=== PATIENT | male | born 1940 | race Caucasian/White ===

== ENCOUNTER 2017-03-26 04:22 | Inpatient (IN) ==
[2017-03-20 10:17] LABS: MANUAL DIFF NEEDED? NO; URINE MICRO REVIEW NEEDED? NO; URINE SOURCE CLEAN CATCH
--- NOTE | 2017-03-20 10:19 | EKG Report ---
Test Performed on : 03/20/2017 10:00:50 AM Test Reason : PAT Blood Pressure : / mmHG Vent. Rate : 045 BPM Atrial Rate : 045 BPM P-R Int : 112 ms QRS Dur : 094 ms QT Int : 484 ms P-R-T Axes : 033 063 060 degrees QTc Int : 418 ms Sinus bradycardia. Otherwise normal ECG When compared with ECG of 25-OCT-2011 10:35, No significant change was found Confirmed by Luiz Renteria DO ([id number]) on 03/24/2017 12:19:47 PM
[2017-03-20 10:28] LABS: BASO% 0.6 % (0.0-0.8); EOS# 0.08 X1000 (0.0-0.7); EOS% 1.6 % (0.0-10.0); HEMATOCRIT 44.5 % (42.0-52.0); HEMOGLOBIN 15.7 g/dL (14.0-18.0); LYMPH# 1.33 X1000 (1.2-3.4); LYMPH% 26.2 % (20.5-51.1); MCH 34.7 PG (27-31); MCHC 35.3 g/dL (33-37); MCV 98.5 FL (81-99); MONO# 0.67 X1000 (0.11-0.59); MONO% 13.2 % (1.7-9.3); MPV 9.6 FL (7.4-10.4); NEUT% 58.4 % (42.2-75.2); PLT 159 X1000 (130-400); PROTIME 10.5 Seconds (9.2-11.7); PTT 28.8 Seconds (22.0-36.0); RBC 4.52 XMIL (4.7-6.1)
[2017-03-20 10:29] LABS: BILIRUBIN URINE NEGATIVE (NEGATIVE); BLOOD URINE NEGATIVE (NEGATIVE); COLOR YELLOW; GLUCOSE URINE NEGATIVE (NEGATIVE); LEUKOCYTES URINE NEGATIVE (NEGATIVE); NITRITE URINE NEGATIVE (NEGATIVE); PH URINE 5.5; PROTEIN URINE TRACE mg/dL (NEGATIVE); SP GRAVITY URINE 1.021; TURBIDITY URINE CLEAR (CLEAR); UROBILINOGEN URINE NORMAL (NORMAL)
[2017-03-20 10:31] LABS: UR EPITHELIAL CELLS <10 /HPF (<10); URINE BACTERIA NEGATIVE /HPF; URINE RBC <10 /HPF (<10); URINE WBC <10 /HPF (<10)
[2017-03-20 10:51] LABS: AGAP 11; BUN 13 mg/dL (8-22); CALCIUM 8.9 mg/dL (8.8-10.2); CHLORIDE 108 mmol/L (98-107); COSMO 288; POTASSIUM 4.8 mmol/L (3.5-5.1); SODIUM 145 mmol/L (136-145); TCO2 26 mmol/L (25-35)
[2017-03-26] MEDS ORDERED: REGLAN ONE (06:06)
[2017-03-26] MEDS ORDERED: LYRICA ONE (06:06)
[2017-03-26] MEDS ORDERED: COLACE ONE (06:06)
[2017-03-26] MEDS ORDERED: PEPCID ONE (06:06)
[2017-03-26] MEDS ORDERED: CELEBREX ONE (06:06)
[2017-03-26] MEDS ORDERED: LR 1,000 ML ONE (06:07)
[2017-03-26] MEDS ORDERED: KEFZOL 2 GM/D5W 2 GM/50 ML IVPB ONE (06:07)
[2017-03-26] MEDS ORDERED: XYLOCAINE-MPF 2% ONE (06:36)
[2017-03-26] MEDS ORDERED: FENTANYL ONE (06:36)
[2017-03-26] MEDS ORDERED: DIPRIVAN 1% ONE (06:36)
[2017-03-26] MEDS ORDERED: ROBINUL ONE ×2 (06:36→07:31)
[2017-03-26] MEDS ORDERED: CYKLOKAPRON 1,000 MG/NS 1,000 MG/100 ML IVPB ONE (06:56)
[2017-03-26] MEDS ORDERED: MARCAINE 0.25% PF ONE (06:56)
[2017-03-26] MEDS ORDERED: TORADOL ONE (06:56)
[2017-03-26] MEDS ORDERED: SODIUM CHLORIDE 0.9% ONE (06:56)
[2017-03-26] MEDS ORDERED: DURAMORPH ONE (06:56)
[2017-03-26] MEDS ORDERED: NEOSPORIN G.U. IRRIGANT ONE (06:56)
[2017-03-26] MEDS ORDERED: EXPAREL 1.3% ONE (06:56)
[2017-03-26] MEDS ORDERED: KETAMINE ONE (07:27)
[2017-03-26] MEDS ORDERED: OFIRMEV 1000 MG/ISOTONIC SOLN 1,000 MG/100 ML BOTTLE ONE (07:28)
[2017-03-26] MEDS ORDERED: DECADRON ONE (07:28)
[2017-03-26] MEDS ORDERED: EPHEDRINE ONE (07:30)
[2017-03-26 08:59] LABS: URINE MICRO REVIEW NEEDED? NO; URINE SOURCE CATH
[2017-03-26 09:09] LABS: BILIRUBIN URINE NEGATIVE (NEGATIVE); BLOOD URINE NEGATIVE (NEGATIVE); COLOR YELLOW; GLUCOSE URINE NEGATIVE (NEGATIVE); LEUKOCYTES URINE NEGATIVE (NEGATIVE); NITRITE URINE NEGATIVE (NEGATIVE); PH URINE 5.5; PROTEIN URINE TRACE mg/dL (NEGATIVE); SP GRAVITY URINE 1.021; TURBIDITY URINE CLEAR (CLEAR); UR EPITHELIAL CELLS <10 /HPF (<10); URINE BACTERIA NEGATIVE /HPF; URINE RBC <10 /HPF (<10); URINE WBC <10 /HPF (<10); UROBILINOGEN URINE NORMAL (NORMAL)
[2017-03-26] MEDS ORDERED: NS 1,000 ML ONE (09:59)
[2017-03-26] MEDS: MORPHINE ONE ×2 (10:35→10:43)
[2017-03-26] MEDS ORDERED: MILK OF MAGNESIA PO PRN (11:15)
[2017-03-26] MEDS ORDERED: AMBIEN PO PRN (11:15)
[2017-03-26] MEDS ORDERED: MORPHINE IV PRN (11:15)
[2017-03-26] MEDS ORDERED: OXY IR PO PRN (11:15)
[2017-03-26] MEDS ORDERED: ZOFRAN IV PRN (11:15)
--- NOTE | 2017-03-26 13:38 | OPERATIVE NOTE ---
PROCEDURE DATE: 03/26/2017 PREOPERATIVE DIAGNOSIS: Right hip degenerative joint disease. POSTOPERATIVE DIAGNOSIS: Right hip degenerative joint disease. PROCEDURE PERFORMED: Right total hip arthroplasty using a [facility] size 17 femoral, standard offset, stem with a +4, 36 mm head, a 56 mm hemispherical shell with two 6.5 cancellous screws of 35 and 30 mm, and a 36 mm inside diameter liner. SURGEON: Zachery Booth MD 1ST ENVIRONMENTAL SERVICES WORKER: YU Roman, who was present throughout the case and was critical for exposure, placement of the implants, and wound closure. 2ND ENVIRONMENTAL SERVICES WORKER: Mike Sorenson RN ANESTHESIA: General. COMPLICATIONS: None. BLOOD LOSS: Minimal. DRAIN: Hemovac x1. DESCRIPTION OF PROCEDURE: The patient was brought to the operative suite and placed in supine position. After successful administration of general anesthesia, the patient was placed on the OSI table in the usual position for the right hip. The right hip was then prepped and draped in the usual sterile fashion. A longitudinal incision was made beginning 2 cm distal and 2 cm lateral to the anterior superior iliac spine and extended distally and slightly laterally 8 cm. We dissected sharply through the skin and then sharply down to the tensor fascia. The tensor fascia was incised and dissected bluntly down to the deep tensor fascia. The deep tensor fascia was incised and the circumflex vessels were electrocauterized. Hemostasis was obtained with electrocautery. A T-capsulotomy was performed, exposing the anterior capsule. A femoral neck cut was made with an oscillating saw. The femoral head was removed with a power corkscrew. The labrum was resected. The acetabulum was serially reamed to 56 to accept a 56 cup. The 56 cup was driven into place in a proper amount of inclination and anteversion. Two 6.5 cancellous screws were placed superiorly and superior posteriorly of 35 and 30 mm each. A 36 mm liner was then locked onto the shell. Attention was then directed to the femur. It was externally rotated, extended, adducted, and elevated out of the wound with the hook on the OSI bed. The lateral neck was rongeured. The canal was serially broached to a size 17. A size 17 high offset +4 trial was found to be excellent leg length, offset, and the hip was stable to exam. The trial was removed. The definitive stem was seated on the femur. The ceramic head was seated on the Hoyt taper of the stem and then the hip was reduced. It was again found to be in excellent position. The wound was copiously irrigated. The anterior capsule was repaired with #2 FiberWire and 0 V-Loc suture. The hip was copiously infiltrated with Exparel, including the posterior capsule, anterior capsule, anterior musculature, and subcutaneous tissue. A drain was placed deep to the tensor fascia and buried around the stem neck and then the tensor fascia was closed with running 0 V-Loc sutures. The skin edge was approximated with 2-0 Vicryl. The skin was closed with Monocryl and Prineo. A sterile dressing was applied. The patient tolerated the procedure well without complication. At the end of the procedure, all counts were correct. The patient was transferred to the recovery room in stable condition. cc: Zachery Booth MD
[2017-03-26] MEDS ORDERED: CYKLOKAPRON 1,000 MG in NS 100 ML IV ONE (13:40)
[2017-03-26] MEDS: KEFZOL 1 GM/D5W 1 GM/50 ML IVPB IV SCH ×2 (14:56→23:12)
[2017-03-26] MEDS: COLACE PO SCH ×2 (14:57→21:35)
[2017-03-26] MEDS: ULTRAM PO SCH ×2 (14:57→18:38)
[2017-03-26] MEDS: TYLENOL PO SCH ×2 (14:57→21:36)
[2017-03-26] MEDS: PERIDEX MT SCH ×2 (14:58→21:35)
[2017-03-26] MEDS: NS 1,000 ML IV SCH ×2 (21:35→23:26)
[2017-03-26] MEDS: LYRICA PO SCH (21:35)
[2017-03-26] MEDS: CELEBREX PO SCH (21:36)
[2017-03-27] MEDS: TYLENOL PO SCH ×2 (02:03→08:51)
[2017-03-27 05:42] LABS: HEMATOCRIT 33.5 % (42.0-52.0); HEMOGLOBIN 11.3 g/dL (14.0-18.0)
[2017-03-27] MEDS ORDERED: XARELTO PO SCH (06:00)
[2017-03-27 06:25] LABS: AGAP 9; BUN 13 mg/dL (8-22); CALCIUM 7.7 mg/dL (8.8-10.2); CHLORIDE 104 mmol/L (98-107); COSMO 275; POTASSIUM 3.9 mmol/L (3.5-5.1); SODIUM 138 mmol/L (136-145); TCO2 25 mmol/L (25-35)
[2017-03-27] MEDS: ULTRAM PO SCH ×3 (06:30→11:33)
[2017-03-27] MEDS: NS 1,000 ML IV SCH (06:30)
[2017-03-27] MEDS ORDERED: DECADRON PO ONE (08:09)
[2017-03-27] MEDS: COLACE PO SCH (08:52)
[2017-03-27] MEDS: PERIDEX MT SCH (08:52)
[2017-03-27] MEDS: CELEBREX PO SCH (08:52)
[2017-03-27] MEDS: LYRICA PO SCH (08:53)
[2017-03-27] MEDS ORDERED: APRESOLINE PO SCH (09:00)
[2017-03-27] MEDS ORDERED: SYNTHROID PO SCH (09:00)
[2017-03-27] MEDS ORDERED: PEPCID PO SCH (09:00)
[2017-03-27] MEDS ORDERED: PATIENT'S OWN MED PO SCH (09:00)
[2017-03-27] MEDS ORDERED: TENORMIN PO SCH (09:00)
[2017-03-27] MEDS ORDERED: KLOR-CON PO SCH (09:00)
[2017-03-27] MEDS ORDERED: DECADRON IV ONE (09:00)
[2017-03-27 11:41] VITALS: BP 114/51
--- NOTE | 2017-03-27 19:21 | DISCHARGE SUMMARY ---
ADMISSION DATE: 03/26/2019 DISCHARGE DATE: 03/27/2017 DISCHARGE DIAGNOSIS: Right hip degenerative joint disease, status post right anterior total hip arthroplasty. DISCHARGE MEDICATIONS: See discharge medication list. DISPOSITION: The patient is discharged to rehab. DISCHARGE INSTRUCTIONS: Instructions for total hip arthroplasty protocol, and instructed to return to see Dr. Booth next . HOSPITAL COURSE: On the day of admission, the patient underwent a right anterior total hip arthroplasty. His postoperative course was unremarkable. At discharge, he is afebrile, tolerating regular diet, and ambulating well with physical therapy. Yesterday, he walked 175 feet. He had 10 mL of drainage from his Hemovac. His hemoglobin is 10.3 and hematocrit 33.5 on discharge. His wound is clean, dry and intact, without sign of infection. His calf is soft. He is discharged to rehab in stable condition with instructions to follow up, as described above. Dictated by YU Roman for Zachery Booth MD cc: YU Roman MD
== END 2017-03-27 12:37 | disposition home health service (06) ==
LOC: SURHOLD 04:22 → 4N 07:20
PROVIDERS: ADMIT Orthopaedic Surgery; ATTEND Orthopaedic Surgery

== ENCOUNTER 2019-08-12 04:32 | Inpatient (IN) ==
[2019-08-12] MEDS ORDERED: NS 1,000 ML IV ONE ×2 (04:45)
[2019-08-12] MEDS ORDERED: ZOFRAN IV ONE (04:45)
[2019-08-12] MEDS ORDERED: PROTONIX 80 MG in NS 80 ML IV ONE (04:45)
[2019-08-12] MEDS ORDERED: MORPHINE IV ONE (04:45)
[2019-08-12 05:34] LABS: BASO# 0.01 X1000 (0.0-0.2); BASO% 0.1 % (0.0-0.8); EOS# 0.03 X1000 (0.0-0.7); EOS% 0.4 % (0.0-10.0); HEMOGLOBIN 8.7 g/dL (14.0-18.0); IMM GRAN# 0.02 X1000 (0.0-0.04); IMM GRAN% 0.3 % (0.0-0.5); LYMPH# 0.78 X1000 (1.2-3.4); LYMPH% 10.5 % (20.5-51.1); MCH 28.1 PG (27-31); MCV 93.5 FL (81-99); MONO# 0.61 X1000 (0.11-0.59); MONO% 8.2 % (1.7-9.3); MPV 8.9 FL (7.4-10.4); NEUT# 5.95 X1000 (1.4-6.5); NEUT% 80.5 % (42.2-75.2); PLT 331 X1000 (130-400); RDW 14.9 % (11.5-14.5)
--- NOTE | 2019-08-12 05:36 | PROVIDER DOCUMENTATION ---
HPI-Abdominal Pain/GI Problem - General Chief Complaint: GI Bleed Stated Complaint: ABD PAIN Time Seen by Provider: 08/12/19 04:38 Source: patient, EMS, [place] [facility] records, old records Allergies/Adverse Reactions: Patient Allergies Allergy/AdvReac Type Severity Reaction Status Date / Time bupropion [From Wellbutrin] AdvReac Severe Unknown Verified 07/29/19 21:03 Psdnrtd-Suq-Txi Reductase AdvReac Unknown Verified 08/12/19 06:05 Inhibitor tramadol AdvReac Unknown Verified 08/12/19 06:05 Home Medications: Home Medication List Medication Instructions Recorded Confirmed Last Taken Type Atenolol 100 mg PO DAILY 03/20/17 08/12/19 07/29/19 05:30 History Hydralazine [Apresoline] 50 mg PO DAILY 03/20/17 08/12/19 07/29/19 05:30 History Levothyroxine [Synthroid] 125 mcg PO DAILY 03/20/17 08/12/19 07/29/19 05:30 History Memantine HCl/Donepezil HCl 1 each PO DAILY 03/20/17 08/12/19 07/29/19 09:00 History [Namzaric 28 mg-10 mg Capsule] Potassium Chloride 20 meq PO DAILY 03/20/17 08/12/19 07/29/19 05:30 History Acetaminophen [Tylenol] 1,000 mg PO QHS 07/29/19 08/12/19 07/28/19 21:00 History Budesonide/Formoterol Fumarate 2 puff INH QAM 07/29/19 08/12/19 07/29/19 05:30 History [Symbicort 160-4.5 Mcg Inhaler] Donepezil [Aricept] 10 mg PO QAM 07/29/19 08/12/19 07/29/19 05:30 History Melatonin/Pyridoxine HCl (B6) 1 mg PO QHS 07/29/19 08/12/19 07/28/19 21:00 History [Melatonin 1 mg Tablet] Meloxicam [Mobic] 7.5 mg PO BID 07/29/19 08/12/19 07/29/19 05:30 History Prevagen 1 ea PO QAM 07/29/19 07/29/19 07/29/19 05:30 History Albuterol Sulfate 1 dose PO DAILY 08/12/19 08/12/19 Unknown History Apixaban [Eliquis] 2.5 mg PO DAILY 08/12/19 08/12/19 Unknown History Azithromycin 250 mg PO DAILY 08/12/19 08/12/19 Unknown History Budesonide/Formoterol Fumarate 1 dose INH BID 08/12/19 08/12/19 Unknown History [Symbicort 160-4.5 Mcg Inhaler] Ferrous Sulfate [Feosol] 325 mg PO DAILY 08/12/19 08/12/19 Unknown History Hydrocodone/Acetaminophen 1 tab PO Q6H PRN 08/12/19 08/12/19 Unknown History [Hydrocodone-Acetamin 5-325 mg] Levofloxacin [Levaquin] 500 mg PO DAILY 08/12/19 08/12/19 Unknown History Magnesium Hydroxide [Milk of 1 dose PO PRN PRN 08/12/19 08/12/19 Unknown History Magnesia] Meloxicam 7.5 mg PO BID PRN 08/12/19 08/12/19 Unknown History Multivit-Minerals/FA/Lycopene 1 cap PO DAILY 08/12/19 08/12/19 Unknown History [Men's Daily Formula Capsule] Nicotine Patch [Nicoderm Patch] 1 patch TOP DAILY 08/12/19 08/12/19 Unknown History - History of Present Illness-ABD Nature of Presenting Problems: 79 yo [place] resident with history of dementia and arthritis and remote EtOH abuse, on Eliquis for CAD/CHF and Meloxicam for arthritis pain, developed some crampy abdominal pain this evening and has had multiple melanotic stools at the [place]. Patient had near syncopal episode and they dialled 911. EMS states BP was 70s systolic, patient was pale and diaphoretic with decreased responsiveness initially, but improved with O2 en route. No prior hx of GI bleed. Hx is limited d/t dementia and no family present. Abdominal Pain Onset Location: reports: generalized abdomen Pain Radiation: reports: no radiation Quality of Pain: reports: dull Severity in ED: reports: moderate Onset/Duration: reports: last night Timing: reports: still present, constant, changing over time Activities at Onset: reports: light activity Exposure to sick contacts?: No Modifying Factors: improves with: lying down. worse with: movement, palpation Associated Symptoms: reports: diaphoresis, diarrhea (melenotic), nausea, syncope , weakness Last BM: this morning Dark Stools Present?: reports: maroon Rectal Pain: reports: none Emesis Description: reports: none Bruising or Bleeding Gums?: No Similar Symptoms Previously?: No Recently seen or treated by another doctor?: No Review of Systems - Adult - REVIEW OF SYSTEMS - ADULT Constitutional: reports: no symptoms reported Eyes: reports: no symptoms reported Ears, Nose, Mouth & Throat: reports: no symptoms reported Cardiovascular: reports: no symptoms reported Respiratory: reports: no symptoms reported Gastrointestinal: reports: no symptoms reported Genitourinary: reports: no symptoms reported Musculoskeletal: reports: no symptoms reported Integumentary: reports: no symptoms reported Neurological: reports: no symptoms reported Psychiatric: reports: no symptoms reported Endocrine: reports: no symptoms reported Hematologic/Lymphatic: reports: no symptoms reported Allergic/Immunologic: reports: no symptoms reported All Other Systems: Reviewed and Negative Past History - Adult - PAST MEDICAL HISTORY-ADULT Review of Records: reports: Old Records Reviewed, Nursing Assessment Review, Medications Reviewed, Social history reviewed & non-contributory. Major Childhood Illnesses: reports: denies history Cardiovascular: reports: CAD, CHF Respiratory: reports: denies history Gastrointestinal: reports: denies history Obstetrical/Gynecological: reports: denies history Genitourinary: reports: denies history Musculoskeletal: reports: denies history Neurological: reports: Alzheimer's Endocrine/Immune: reports: denies history Other Conditions: reports: denies history - PRIOR SURGERIES/PROCEDURES Surgical/Procedure History: reports: reviewed, not pertinent, orthopedic (extremity) - IMMUNIZATION STATUS Childhood Immunizations: UTD Flu Vaccine: NUTD - SOCIAL HISTORY Smoking: non-smoker Substance Use: none presently/history of abuse, alcohol Alcohol Use Frequency: sober (former use) Living Situation: care facility Physical Exam-General - PHYSICAL EXAM-ADULT Initial Vital Signs Reviewed: Yes (VSSAF) - CONSTITUTIONAL General Appearance: appears well, alert, no apparent distress - EYES Eyes: PERRL/EOMI, pale conjunctivae - HEAD, EARS, NOSE, MOUTH & THROAT HENMT: normocephalic/atraumatic. negative: moist mucous membranes (dry, pale mucosa) - NECK Neck: non-tender, full range of motion, supple - RESPIRATORY Respiratory: chest non-tender, lungs clear, normal breath sounds, no pleuratic chest pain, no respiratory distress, no accessory muscle use - CARDIOVASCULAR Cardiovascular: normal peripheral pulses, regular rate, rhythm, no edema, no gallop, no JVD, systolic murmur - GASTROINTESTINAL (ABDOMEN) Abdominal Exam: soft, abnormal bowel sounds (hyperactive), tenderness (moderate diffuse without rebound or guarding) - GENITOURINARY Rectal Exam: other (melena) Hemoccult Exam: heme positive stool - MUSCULOSKELETAL Back Exam: normal inspection, no CVA tenderness, no vertebral tenderness Extremity: normal range of motion, non-tender, normal inspection, no pedal edema , no calf tenderness, normal capillary refill Peripheral Pulses: radial (L): 2+, dorsalis-pedis (R): 2+, dorsalis-pedis (L): 2+ - SKIN Integumentary: normal turgor, warm/dry, pallor - NEUROLOGIC Neurologic: licensed mortgage loan officer II-XII nml as tested, grossly normal, no motor/sensory deficits - PSYCHIATRIC Psych/Mental Status: normal mood/affect, normal thought content, disoriented x 3 Progress - PLAN OF CARE/RESULTS Progress/Plan/Lab Results: Vital Signs - 8 hr 08/12/19 04:40 Temperature 98.2 F Pulse Rate 67 Respiratory Rate 20 Blood Pressure 104/56 O2 Sat by Pulse Oximetry 100 Orders Category Date Time Status Aguirre Cath Insertion ORDERED Care 08/12/19 04:45 Active Nursing- Obtain EKG once Care 08/12/19 04:45 Active CHEST-PORTABLE [RAD] Stat Exams 08/12/19 04:[address] ABD/PELVIS W/IV CONT ONLY [CT] Stat Exams 08/12/19 04:46 Ordered KUB ABDOMEN [RAD] Stat Exams 08/12/19 04:44 Ordered BLOOD CULTURE [BLDCUL] Stat Lab 08/12/19 05:00 Ordered CBC WITH ELECTRONIC DIFF [HEME] Stat Lab 08/12/19 05:00 Results COMPREHENSIVE METABOLIC PANEL [CHEM] Stat Lab 08/12/19 05:00 Received LACTATE, PLASMA [CHEM] Stat Lab 08/12/19 05:00 Received PRO B-NATRIURETIC PEPTIDE Stat Lab 08/12/19 05:00 Received PROTIME WITH INR [COAG] Stat Lab 08/12/19 05:00 Received PTT [COAG] Stat Lab 08/12/19 05:00 Received TROPONIN T HIGH SENSITIVITY Stat Lab 08/12/19 05:00 Received TYPE & SCREEN [BBK] Stat Lab 08/12/19 05:00 Received URINALYSIS W/POSS RFLX CULT [URINALYSIS] Stat Lab 08/12/19 04:45 Uncollected 0.9% Sodium Chloride Inj [Ns] 1,000 ml Med 08/12/19 04:45 Active IV 999 mls/hr 0.9% Sodium Chloride Inj [Ns] 1,000 ml Med 08/12/19 04:45 Active IV 999 mls/hr Morphine Med 08/12/19 04:45 Discontinued 2 mg IV NOW ONE Ondansetron [Zofran] Med 08/12/19 04:45 Discontinued 4 mg IV NOW ONE Pantoprazole [Protonix] 80 mg Med 08/12/19 04:45 Discontinued 0.9% Sodium Chloride Inj [Ns] 80 ml IV NOW GI Bleed (possible) Stat Oth 08/12/19 04:43 Ordered EKG [EKG] Stat Ther 08/12/19 04:45 Ordered Result Diagrams: 08/12/19 05:00 08/12/19 05:00 - REASSESSMENT Reassessment #1 Time Reassessed: 06:03 Status: improving (Given 2L of IVF bolus, IV morphine/zofran and protonix. We do not stock the reversal agent for Eliquis at this facility.) - EKG 1 Time of EKG reading by physician:: 06:16 EKG Read and Signed by:: Carl Hoover EKG Interpretation (*Must complete 3 of following elements*): Abnormal Rate: 66 Rhythm: NSR [place]: normal QRS: other (low voltage) - CONSULTS/PCP/HOSPITALIST Notification #1 *Consult/PCP/Hospitalist*: Zuri paged at [phone], [id number] Time Discussed: 06:17 Consult Disposition: Admit Departure - Departure Date of Disposition Decision: 08/12/19 Time of Disposition Decision: 06:17 DIAGNOSIS: GI bleed due to NSAIDs, Nontraumatic hemorrhagic shock Anticoagulant adverse reaction Qualifiers: Encounter type: initial encounter Qualified Code(s): T45.515A - Adverse effect of anticoagulants, initial encounter Disposition: ADMITTED INPATIENT 09 Certified Medical Emergency: Emergent Condition: Fair - Critical Care Note This patient required my direct & personal management of CC.: Yes Total Time (mins): 35 Critical Care Statement: This patient required my direct personal management to treat or rule out processes, the absence of which, could potentiallly result in sudden, clinically significant life or limb threatening deterioration. Attestation - Physician/ ASHLEY Attestation Patient care was provided by Advanced Practice Provider:: No The physician spent face to face time with patient:: Yes Advanced Practice Provider documentation review:: Supervising physician onsite and consulted in the evaluation and care of this patient. The physician did have a face to face encounter with the patient.
[2019-08-12 05:40] LABS: INR 1.24; PROTIME 15.8 Seconds (11.0-16.0)
[2019-08-12 05:41] LABS: PTT 31.8 Seconds (22.3-41.8)
[2019-08-12 05:53] LABS: URINE SOURCE CLEAN CATCH
[2019-08-12 06:03] LABS: BILIRUBIN URINE NEGATIVE (NEGATIVE); BLOOD URINE NEGATIVE (NEGATIVE); COLOR YELLOW; GLUCOSE URINE NEGATIVE (NEGATIVE); KETONE URINE NEGATIVE (NEGATIVE); LEUKOCYTES URINE NEGATIVE (NEGATIVE); NITRITE URINE NEGATIVE (NEGATIVE); PROTEIN URINE TRACE mg/dL (NEGATIVE); SP GRAVITY URINE 1.024; TURBIDITY URINE CLEAR (CLEAR); UROBILINOGEN URINE 3 mg/dL (NORMAL)
[2019-08-12 06:04] LABS: UR EPITHELIAL CELLS <10 /HPF (<10); URINE BACTERIA NEGATIVE /HPF; URINE RBC <10 /HPF (<10); URINE WBC <10 /HPF (<10)
[2019-08-12 06:07] LABS: ALB/GLOB RATIO 1.2; CALCIUM 8.1 mg/dL (8.8-10.2); CREATININE 1.2 mg/dL (0.7-1.2); POTASSIUM 5.1 mmol/L (3.5-5.1); TOTAL BILIRUBIN 0.27 mg/dL (0.20-1.00); TOTAL PROTEIN 5.6 g/dL (6.3-8.3)
--- NOTE | 2019-08-12 06:31 | Diag Imaging Result Doc PS360 ---
KUB ABDOMEN - 08/12/2019 INDICATION: gi bleed, pain COMPARISON: None FINDINGS: There is a collection of calcification projecting in the region of the gallbladder fossa. This is round and heterogeneous. This measures about 3 cm. No bowel obstruction or free air. There are bilateral hip replacements. IMPRESSION: Significant calcifications projecting over the gallbladder fossa. Likely represents gallbladder packed with gallstones. Electronically signed by Rohit Brand 08/12/2019 6:29 AM
--- NOTE | 2019-08-12 06:32 | Diag Imaging Result Doc PS360 ---
CHEST-PORTABLE - 08/12/2019 INDICATION: Syncope, GI bleed COMPARISON: 10/25/2011 FINDINGS: Stable advanced COPD. Stable pulmonary scarring in the right lung base. No infiltrates or edema. No pneumothorax or pleural effusion. Heart size is normal. IMPRESSION: COPD with pulmonary scarring. No change from prior. Electronically signed by Rohit Brand 08/12/2019 6:30 AM
[2019-08-12] MEDS ORDERED: VITAMIN K 10 MG in NS 50 ML IV ONE (06:46)
--- NOTE | 2019-08-12 07:23 | EKG Report ---
Test Performed on : 08/12/2019 06:16:25 AM Test Reason : GI bleed Blood Pressure : / mmHG Vent. Rate : 066 BPM Atrial Rate : 066 BPM P-R Int : 120 ms QRS Dur : 078 ms QT Int : 414 ms P-R-T Axes : 043 051 074 degrees QTc Int : 434 ms Sinus rhythm. with premature atrial complexes. Otherwise normal ECG When compared with ECG of 30-JUL-2019 01:32, (Unconfirmed) premature atrial complexes. are now present Unconfirmed Result
--- NOTE | 2019-08-12 07:50 | Diag Imaging Result Doc PS360 ---
EXAM: CT ABD/PELVIS W/IV CONT ONLY 08/12/2019 HISTORY: colitis TECHNIQUE: This exam was performed using automated exposure control, adjustment of mA or kV according to patient size, and/or use of iterative reconstruction technique. COMMENT: There are no previous studies available for comparison. There are some platelike opacities in the left lower lobe and denser consolidation in the posterior right lower lobe which may be indicative of bronchopneumonia. There are extensive arterial calcifications. The celiac and superior mesenteric arteries arise from a single trunk. There is calcification in the proximal renal arteries bilaterally. There is infrarenal abdominal aortic aneurysm with an AP diameter of 2.5 cm. The inferior mesenteric artery is apparently patent. There is a secondary dilatation of the distal abdominal aorta just above the bifurcation to 2.2 cm. There is slight dilatation of the proximal left common iliac artery to 13 mm. The gallbladder is apparently filled with small stones. There is no evidence of nephrolithiasis hydronephrosis or masses in the kidneys. There are some vascular calcifications in both kidneys. The liver is unremarkable otherwise. The spleen is not enlarged. The adrenal glands are not enlarged. The pancreas is within normal limits. There is some fluid in the colon. There is no evidence of mucosal thickening. The small bowel is not distended. Pelvis: There is no evidence of appendicitis. The urinary bladder is not distended. There is no evidence of free fluid. Some beam hardening artifact arises from the hip prostheses bilaterally. There are degenerative disc changes in the lumbar spine. IMPRESSION: 1. Bronchopneumonia. 2. Fluid in the colon which may be indicative of mild enterocolitis. 3. Atherosclerotic changes with abdominal aortic aneurysm. 4. Cholelithiasis. Other nonacute findings as described above. Electronically signed by Michael Hooker 08/12/2019 7:47 AM
[2019-08-12] MEDS ORDERED: ZOFRAN IV PRN (10:03)
--- NOTE | 2019-08-12 10:21 | HISTORY AND PHYSICAL ---
PRIMARY CARE PHYSICIAN: Guillermo Okeefe MD. CHIEF COMPLAINT: Was at retirement and began having some cramping abdominal pain. Per the staff at the retirement, had multiple melenic stools and a syncopal episode, with blood pressure dropping to the 70s systolic at the facility. HISTORY OF PRESENT ILLNESS: This is an 79-year-old, male who presents to [facility] from a local retirement with complaints of cramping abdominal pain, multiple melenic stools, a syncopal episode, and blood pressure at the retirement was in the 70s systolic. EMS brought the patient to the ER. When he arrived, he had a blood pressure of 104/56. Hemoglobin and hematocrit were 8.7 and 29. Per the ER documentation, stool was heme positive. It is noted that the patient, on 07/29/2019, had a fall that resulted in a left hip fracture and had a repair of his left hip fracture at [facility]. Was started on Eliquis. Also takes Mobic for arthritis twice a day. His CT of the abdomen and pelvis showed a bronchopneumonia, fluid in the colon which may be indicative of a mild enterocolitis. He will be admitted for further evaluation and treatment. PAST MEDICAL HISTORY: Dementia, arthritis, ETOH abuse, coronary artery disease, CHF, and Alzheimer's. PAST SURGICAL HISTORY: Left hip repair on 07/29/2019. FAMILY HISTORY: Reviewed and noncontributory. SOCIAL HISTORY: Currently resides at a local retirement. No tobacco use. No alcohol use but has a history of ETOH abuse. No illicit drug use. ALLERGIES: Bupropion, statins, and tramadol. HOME MEDICATIONS: Current list will need to be obtained, reconciled, reviewed, and restarted as appropriate. We will place an order for nursing to update and confirm home medications. LABORATORY DATA: Showed a white blood cell count of 7.40, hemoglobin 8.7, hematocrit 29, platelets 331,000. PT and INR of 15.8 and 1.24. Sodium of 137, potassium 5.1, chloride 103, CO2 of 22, BUN of 38, creatinine 1.2, glucose 93. ProBNP of 422. Troponin T high sensitivity was 19. Plasma lactate of 2.1. Urinalysis was negative. Abdomen x-ray showed significant calcifications projecting over the gallbladder fossa, likely representing gallbladder packed with gallstones. Chest x-ray showed COPD with pulmonary scarring. No change from prior. CT of the abdomen and pelvis showed a bronchopneumonia, fluid in the colon which may be indicative of a mild enterocolitis, atherosclerotic changes with abdominal aortic aneurysm and a cholelithiasis. REVIEW OF SYSTEMS: Unable to obtain from patient but per family at bedside and retirement staff report, has had a cough, congestion, cramping abdominal pain, and multiple melenic stools. PHYSICAL EXAMINATION: VITAL SIGNS: On arrival, he had a temperature of 98.2 degrees, pulse 67, respirations 20, blood pressure 104/56, saturating 100% on 2 L. GENERAL: This is an 79-year-old, male who is lying in the bed. Unable to answer questions appropriately due to his dementia. Reviewed medical records and the family at bedside. HEENT: Normocephalic, atraumatic. Normal ENT inspection. Oropharynx and nares are clear. Eyes: Pupils are equal, round, and reactive to light and accommodation. Extraocular movements are intact. NECK: Normal inspection. Normal range of motion. LUNGS: Clear to auscultation bilaterally with equal lung expansion and chest wall movement. ABDOMEN: Soft. There is some tenderness throughout. Bowel sounds are present x4 quadrants. He had a heme-positive stool. MUSCULOSKELETAL: Normal inspection. Normal range of motion. NEUROLOGICAL: The cranial nerves 2-12 appear grossly intact. ASSESSMENT: 1. Bronchopneumonia. 2. A mild enterocolitis. 3. Cholelithiasis. 4. Dementia. PLAN: He will be admitted to the medical unit, placed on telemetry, O2 per protocol, clear liquid diet. We will do serial hemoglobin and hematocrit q.[address] on SCDs for DVT prophylaxis. We will place on Rocephin 1 gram IV q.24, azithromycin 500 IV q.24, DuoNeb q.4 hours. We will also give him Protonix 40 mg IV q.12. Recheck a CBC and BMP in the a.m. Further orders after seen by attending and retail wireless sales consultant. Dictated by WILDER Aldana for Timo Baker MD Addendum: Patient seen and examined by myself. Agree with WILDER note. It reflects my assessment and plan. Patient is being admitted to hospital for acute bronchopneumonia. Will consult GI for GI bleeding. Will monitor patient closely. cc: WILDER Aldana MD Chad McElroy, MD MTDD
[2019-08-12 10:48] LABS: URINE SOURCE CATH
[2019-08-12 11:00] LABS: BILIRUBIN URINE NEGATIVE (NEGATIVE); BLOOD URINE NEGATIVE (NEGATIVE); COLOR STRAW; GLUCOSE URINE NEGATIVE (NEGATIVE); KETONE URINE NEGATIVE (NEGATIVE); LEUKOCYTES URINE NEGATIVE (NEGATIVE); NITRITE URINE NEGATIVE (NEGATIVE); PH URINE 5.5; PROTEIN URINE NEGATIVE (NEGATIVE); SP GRAVITY URINE 1.043; TURBIDITY URINE CLEAR (CLEAR); UR EPITHELIAL CELLS <10 /HPF (<10); URINE BACTERIA NEGATIVE /HPF; URINE RBC <10 /HPF (<10); URINE WBC <10 /HPF (<10); UROBILINOGEN URINE NORMAL (NORMAL)
[2019-08-12] MEDS: DUONEB (A & A) INH SCH ×4 (11:25→23:24)
[2019-08-12] MEDS: ZITHROMAX 500 MG/NS 500 MG/250 ML IVPB IV SCH (11:50)
[2019-08-12] MEDS ORDERED: NS 500 ML ONE (12:07)
[2019-08-12 15:09] LABS: HEMATOCRIT 23.8 % (42.0-52.0)
--- NOTE | 2019-08-12 15:55 | Diag Imaging Result Doc PS360 ---
EXAM: US ABDOMEN-COMPLETE 08/12/2019 HISTORY: cholelithiasis TECHNIQUE: Abdominal ultrasound COMMENT: The visualized portions of the aorta and inferior vena cava are particularly distended. The maximum AP diameter of the abdominal aorta is measured at 2.1 cm. There is some irregularity of the lumen of the aorta however which probably reflects atherosclerotic change. The liver is unremarkable. There is antegrade flow in the portal vein. The common bile duct measures less than 7 mm. The kidneys are without evidence of hydronephrosis or mass. The spleen is not enlarged. The pancreas is obscured. There are some shadowing echoes within the gallbladder presumably representing small stones. There is no sonographic Aguilar sign. IMPRESSION: Cholelithiasis without evidence of acute cholecystitis. Electronically signed by Michael Hooker 08/12/2019 3:53 PM
--- NOTE | 2019-08-12 16:46 | GASTROENTEROLOGY CONSULTATION ---
DATE: 08/12/2019 REASON FOR CONSULT: GI bleed. HISTORY OF PRESENT ILLNESS: Mr. Tuttle is an 83-year-old male who was brought in this morning from [facility] after having syncopal episode and reported rectal bleeding. As per fdc, patient had symptoms of hypotension, syncope, and passed out around 3 a.m. this morning. The patient is at the rehab facility due to recent left hip fracture s/p surgery. During his most recent hospitalization, he was transfused 1 unit for anemia and started on Eliquis for DVT ppx. At baseline, he takes meloxicam for joint pain. His daughter is at the bedside and she had mentioned that the patient had a colonoscopy done [address] Capps in [place] and the findings were normal. The patient did complain of abdominal pain, but he has denied any nausea, vomiting, or any flu-like symptoms like fever or chills. The patient's hemoglobin and hematocrit on admission were 8.7 and 29.0. Today his hemoglobin is 7.0 and 23.8. The patient has not had a bowel movement today, but has denied any new bleeding episodes. The patient's abdominal x-ray has shown significant calcifications projecting over the gallbladder fossa likely representing gallbladder packed with gallstones. The patient's chest x-ray has shown COPD with pulmonary scarring. The patient's abdomen and pelvis CT has shown bronchopneumonia, fluid in the colon which may be indicative of mild enterocolitis, atherosclerotic changes with abdominal aortic aneurysm, cholelithiasis. Abdominal U/s has showed Cholelithiasis without evidence of acute cholecystitis. PAST MEDICAL HISTORY: Dementia, arthritis, coronary artery disease, CHF, Alzheimer's, hypertension, hypothyroidism, COPD. chronic joint pain, tobacco abuse SURGICAL HISTORY: Bilateral hip surgeries, reverse surgery of the right hip, fracture of the left hip, and tonsillectomy. SOCIAL HISTORY: The patient is , has 2 kids. He smokes half a pack to 3 packs of cigarettes, used to drink alcohol in the past. ALLERGIES: The patient is allergic to statins, tramadol, bupropion. FAMILY HISTORY: No significant GI malignancies. HOME MEDICATIONS: Levothyroxine 125 mcg daily, hydralazine 50 mg daily, Atenolol 100 mg daily, potassium chloride 20 mEq daily, medications memantine HCL/donepezil 1 tablet daily, Symbicort 2 puffs in the a.m., donepezil 15 mg p.o. a.m., melatonin/pyridoxine 1 mg at bedtime, meloxicam 7.5 mg twice a day, Prevagen 1 tablet daily a.m., Tylenol 1000 mg p.o. at bedtime, Eliquis 2.5 mg p.o. daily, azithromycin 250 mg daily, Symbicort 1 dose twice a day, ferrous sulfate 325 mg daily, hydrocodone/acetaminophen 5/325 mg 1 tablet every 6 hours as needed, magnesium hydroxide 1 dose p.o. p.r.n., meloxicam 7.5 mg p.o. b.i.d. as needed, men's multivitamin 1 capsule daily, nicotine patch 1 patch topical daily, albuterol sulfate 1 dose p.o. daily, Levaquin 500 mg p.o. daily. REVIEW OF SYSTEMS: As per HPI. Otherwise, 12 point review of systems negative. PHYSICAL EXAMINATION: Vital Signs: Temperature 98.2 degrees, pulse 54, respirations 14, blood pressure 114/49, oxygen saturation 100% on 2 L nasal cannula. The patient's weight is 127 pounds. BMI is 19.5 kg/m2. General: He is alert, oriented x 2, and in no acute distress. HEENT: Pale conjunctivae. No icterus. PERRL. TE-MOAK. Neck: Supple. Lungs: Clear to auscultation. Cardiovascular: Patient is bradycardic. Abdomen: Soft, nontender, nondistended. Active bowel sounds heard in all 4 quadrants. Extremities: No clubbing. No cyanosis. No edema. The patient has an incision on his right hip. [place] intact and skin is dry. Neurologic: Alert and oriented x 2. Nonfocal. Cranial nerves 2-12 grossly intact. LABS: WBCs are 7.40, RBC 3.10, hemoglobin 7.0, hematocrit is 23.8, platelet count is 331,000. PT is 15.8, INR is 1.24. Sodium 137, potassium 5.1, chloride 103, carbon dioxide 22, anion gap 12, BUN 38, creatinine is 1.2, glucose 93, calcium 8.1, total bilirubin 0.27, AST 28, ALT 11, alkaline phosphatase 99, albumin is 3.0, plasma lactate is 2.1. Urinalysis has been negative. Abdomen and pelvis CT has shown bronchopneumonia, fluid in the colon which may indicate mild enterocolitis, arthrosclerotic changes with abdominal aortic aneurysm, cholelithiasis. The patient's chest x-ray has shown COPD with pulmonary scarring. Abdomen x-ray had shown significant calcification projecting over the gallbladder fossa slightly, represents a gallbladder packed with gallstones. Abdominal U/s has shown Cholelithiasis without evidence of acute cholecystitis. The patient's blood cultures are pending. IMPRESSIONS AND PLAN: 1. Gastrointestinal bleed. 2. Pneumonia. 3. Coronary artery disease. 4. Hip fracture, status post surgery. 5. Congestive heart failure. 6. Chronic obstructive pulmonary disease. 7. Current smoker PLAN: Mr. Tuttle is an 79-year-old male who recently had a hip fracture and had a surgery at [facility]. The patient is a resident of [facility]. GI has been consulted for his GI bleed. The patient's hemoglobin and hematocrit today is 7.0 and 23.8. The patient is currently on Protonix 40 mg IV twice a day. The patient is also receiving IV fluids, normal saline. The patient is also receiving Zithromax and Rocephin for his pneumonia. We plan to do an EGD tomorrow to find out the cause of his bleeding. We have discussed the risks, benefits, and alternatives of the procedure with the patient and the family. They acknowledged understanding of the plan of care. Further plan of care will be based on the EGD findings. This plan was discussed with Dr. Delatorre. Thank you for your consult and please call us for any further questions or concerns. Dictated by WILDER Pace for Berhane Delatorre MD Physician Attestation I have seen and examined the patient. I have discussed and reviewed the note by Andra HDZ and agree with findings and plan as documented. In brief, Mr. Tuttle is a 79 year old man with CAD, COPD, tobacco abuse, gallstones, CHF, dementia, who recently underwent hip replacement who presents from [place] after having syncopal event in setting of worsening anemia and probable UGIB. Patient was recently started on Eliquis and he takes meloxicam for joint pain at baseline. VSS. He is on PPI IV BID. Coags normal. Plts normal. Trending H/H transfusing prn for goal hgb 7-8. He is being treated for pneumonia diagnosed on presentation. Will plan EGD on Sun. MTDD
[2019-08-12 20:24] LABS: HEMOGLOBIN 7.1 g/dL (14.0-18.0)
[2019-08-12] MEDS: ROCEPHIN 1 GM in NS 50 ML IV SCH (22:22)
[2019-08-12] MEDS: PROTONIX IV SCH (22:23)
[2019-08-12] MEDS: SODIUM CHLORIDE 0.9% INJ SCH (22:23)
[2019-08-13 02:08] LABS: HEMOGLOBIN 7.1 g/dL (14.0-18.0)
[2019-08-13] MEDS: DUONEB (A & A) INH SCH ×6 (04:20→23:36)
[2019-08-13] MEDS: PROTONIX IV SCH ×3 (06:45→19:28)
[2019-08-13] MEDS: SODIUM CHLORIDE 0.9% INJ SCH ×2 (06:45→17:44)
[2019-08-13 07:31] LABS: BASO# 0.02 X1000 (0.0-0.2); BASO% 0.5 % (0.0-0.8); EOS# 0.02 X1000 (0.0-0.7); EOS% 0.5 % (0.0-10.0); HEMATOCRIT 23.8 % (42.0-52.0); LYMPH# 0.58 X1000 (1.2-3.4); LYMPH% 15.4 % (20.5-51.1); MCH 27.6 PG (27-31); MCHC 29.4 g/dL (33-37); MCV 93.7 FL (81-99); MONO# 0.33 X1000 (0.11-0.59); MONO% 8.8 % (1.7-9.3); MPV 8.6 FL (7.4-10.4); NEUT# 2.82 X1000 (1.4-6.5); NEUT% 74.8 % (42.2-75.2); PLT 292 X1000 (130-400); RBC 2.54 XMIL (4.7-6.1); RDW 14.9 % (11.5-14.5); WBC 3.77 X1000 (4.8-10.8)
[2019-08-13 07:57] LABS: AGAP 8; ALBUMIN 2.8 g/dL (3.5-5.0); BUN 18 mg/dL (8-22); CALCIUM 7.6 mg/dL (8.8-10.2); CHLORIDE 107 mmol/L (98-107); COSMO 279; ESTIMATED GFR > 60; GLUCOSE 86 mg/dL (70-104); PHOSPHORUS 2.5 mg/dL (2.7-4.5); POTASSIUM 3.8 mmol/L (3.5-5.1); SODIUM 139 mmol/L (136-145); TCO2 24 mmol/L (25-35)
[2019-08-13] MEDS ORDERED: DIPRIVAN 1% ONE (09:09)
[2019-08-13] MEDS ORDERED: EPINEPHRINE SYRINGE ONE (10:03)
--- NOTE | 2019-08-13 10:07 | ENDOSCOPY OPERATIVE NOTE ---
[facility] ENDOSCOPY OPERATIVE NOTE , EGD PROCEDURE REPORT EXAM DATE: 08/13/2019 PATIENT NAME: Cisco Tuttle MR#: [id number] BIRTHDATE: 1940 ATTENDING: Berhane Delatorre MD STATUS: inpatient INVESTIGATOR FRAUD: INDICATIONS: The patient is a 79 yr old male here for an EGD due to melena, anemia, and recent hip f racture repair on Eliquis; takes meloxicam. PROCEDURE PERFORMED: EGD w/ control of bleeding MEDICATIONS: Per Anesthesia ESTIMATED BLOOD LOSS: None CONSENT: The patient understands the risks and benefits of the procedure and understands that these r isks include, but are not limited to: sedation, allergic reaction, infection, perforation and/or bleeding. Alternative means of evaluation and treatment include, among others: physical exam, x-rays, and/or surgical intervention. The patient elects to proceed with this endoscopic procedure. DESCRIPTION OF PROCEDURE: During pre-op preparation period all mechanical and medical equipment was c hecked for proper function. Hand hygiene and appropriate measures for infection prevention was taken. After the risks, benefits and alternatives of the procedure were thoroughly explained, Informed consent was verified, confirmed and timeout was successfully executed by the treatment team. The patient was anesthetized with topical anesthesia and the [id number] ([id number]) endoscope was introduced through the mouth and advanced to the second portion of the duoden um. Retroflexion was performed in the stomach and revealed no abnormalities. The gastroscope was then slowly withdraw n and removed. The patient's toleration of the procedure was excellent. ESOPHAGUS: The mucosa of the esophagus appeared normal. The z-line was noted at 45cm from the incis ors. The z-line appeared normal. STOMACH: A single non-bleeding, deep and irregular shaped ulcer measuring 40mm in size with two red s pots was found on the lesser curvature of the gastric antrum. Submucosal injection of 3ml of epinephrine 1:10,000 was injected around the site with good treatment effect. Cautery was applied to the site. With good treatment effect. There was a pinhole orifice at the base concerning for penetrating ulcer. DUODENUM: The duodenum was normal. ADVERSE EVENTS: There were no complications. IMPRESSIONS: ESOPHAGUS: The mucosa of the esophagus appeared normal. The z-line was noted at 45cm from the incis ors. The z-line appeared normal. STOMACH: A single non-bleeding, deep and irregular shaped ulcer measuring 40mm in size with two red s pots was found on the lesser curvature of the gastric antrum. Submucosal injection of 3ml of epinephrine 1:10,000 was injected around the site with good treatment effect. Cautery was applied to the site. With good treatment effect. There was a pinhole orifice at the base concerning for penetrating ulcer. DUODENUM: The duodenum was normal. RECOMMENDATIONS: Keep NPO Recommend repeat CT abdomen with oral contrast to rule out penetrating ulcer Continue PPI IV BID Trending H/H, transfuse prn goal hgb 7-8 Holding blood thinners REPEAT EXAM: Berhane Delatorre MD eSigned: Berhane Delatorre MD 08/13/2019 10:09 AM CC: CPT CODES: 45989 Upper gastrointestinal endoscopy including esophagus, stomach, and either the du odenum and/or jejunum as appropriate; with control of bleeding, any method ICD CODES: 578.1 Blood in stool 285.9 anemia,unspecified The ICD and CPT codes recommended by this software are interpretations from the data that the [facility] staff has captured with the software. The verification of the translation of this report to the ICD and CPT co tomas and modifiers is the sole responsibility of the health care institution and practicing physician where this report was generated. [employer] will not be held responsible for the validity of the ICD and CPT codes i ncluded on this report. [employer] assumes no liability for data contained or not contained herein. CPT is a registered tra demark of the [employer]. PATIENT NAME: Cisco Tuttle MR#: [id number]
[2019-08-13] MEDS ORDERED: NS 500 ML IV ONE (11:01)
--- NOTE | 2019-08-13 12:38 | Diag Imaging Result Doc PS360 ---
CT ABDOMEN ORAL CONTRAST ONLY - 08/13/2019 INDICATION: RULE OUT PENETRATING ULCER COMPARISON: 08/12/2019 FINDINGS: There is some wall thickening of the gastric pylorus. There is no contrast leak. No peritoneal free air. The stomach and small bowel otherwise appear normal. The colon appears normal. IMPRESSION: Wall thickening of the gastric pylorus. No obvious ulceration or perforation. This exam was performed using automated exposure control, adjustment of mA or kV according to patient size, and/or use of iterative reconstruction technique Electronically signed by Rohit Brand 08/13/2019 12:38 PM
--- NOTE | 2019-08-13 13:05 | PROGRESS NOTE ---
DATE: 08/13/2019 SUBJECTIVE: The patient reports feeling fine. He is having some abdominal cramping family is at bedside. OBJECTIVE: Vital Signs: Temperature 98.4 degrees, heart rate 80, respiratory rate 16, blood pressure 126/92, and O2 saturation 100% on 2 L nasal cannula. General: This is an 79-year-old male lying in bed in no acute distress. Cardiovascular: S1, S2 heard. No murmurs, gallops, or rubs. Regular rate and rhythm. Respiratory: Clear bilaterally to auscultation. No work of breathing or using accessory muscles. Abdomen: Soft. A little bit distended but nontender to palpation. Bowel sounds present. No organomegaly. Extremities: No clubbing, cyanosis, or edema. Peripheral pulses present in both legs. Neurological: Patient is alert and oriented x3. Moves all 4 extremities. The patient is awake but confused at times regarding time and place. Moves all 4 extremities spontaneously. LABORATORY DATA: White cell count 3.77, hemoglobin 7.0, hematocrit 23.8, and platelets 292,000 with normal BMP. ASSESSMENT AND PLAN: 1. Gastrointestinal bleeding. That is the reason why this patient was admitted to the hospital, and evaluated by GI. They found out a single known bleeding 40 mm ulcer with 2 red spots that was found in the gastric antrum that was cauterized. GI decided to do a CT of the abdomen with oral contrast to rule out penetrating ulcer. We will continue to trend hemoglobin and hematocrit. Hold blood thinners. We will do it every 6 hours. 2. Acute bronchopneumonia. We will continue with broad-spectrum antibiotics. Rocephin and azithromycin and breathing treatments as well. Cholelithiasis stable. We have checked abdominal ultrasound to rule out any cholecystitis, but that that exam is okay. We will continue to monitor. 3. Dementia. We will continue home medications. 4. Disposition. I think because of this big ulcer and drop in hemoglobin, I prefer to send this patient to the PVC unit. cc: Timo Baker MD
[2019-08-13] MEDS: ZITHROMAX 500 MG/NS 500 MG/250 ML IVPB IV SCH (13:16)
[2019-08-13] MEDS: NICODERM PATCH TD SCH (15:30)
[2019-08-13 16:00] LABS: HEMATOCRIT 23.2 % (42.0-52.0); HEMOGLOBIN 6.9 g/dL (14.0-18.0)
[2019-08-13 17:39] LABS: HEMATOCRIT 23.2 % (42.0-52.0); HEMOGLOBIN 6.8 g/dL (14.0-18.0)
[2019-08-13] MEDS: TYLENOL PO PRN (17:44)
[2019-08-13] MEDS: ROCEPHIN 1 GM in NS 50 ML IV SCH (21:58)
[2019-08-13] MEDS: ICAR-C PO SCH (21:58)
[2019-08-13 23:34] LABS: HEMATOCRIT 25.2 % (42.0-52.0); HEMOGLOBIN 7.6 g/dL (14.0-18.0)
[2019-08-14] MEDS: SODIUM CHLORIDE 0.9% INJ SCH (05:22)
[2019-08-14] MEDS: PROTONIX IV SCH ×3 (05:22→21:01)
[2019-08-14] MEDS: DUONEB (A & A) INH SCH ×6 (05:26→23:53)
[2019-08-14 08:12] LABS: BASO# 0.01 X1000 (0.0-0.2); BASO% 0.3 % (0.0-0.8); EOS# 0.04 X1000 (0.0-0.7); EOS% 1.1 % (0.0-10.0); HEMATOCRIT 31.2 % (42.0-52.0); HEMOGLOBIN 9.6 g/dL (14.0-18.0); LYMPH# 0.73 X1000 (1.2-3.4); MCH 27.7 PG (27-31); MCHC 30.8 g/dL (33-37); MCV 90.2 FL (81-99); MONO# 0.36 X1000 (0.11-0.59); MONO% 10.3 % (1.7-9.3); MPV 8.6 FL (7.4-10.4); NEUT# 2.34 X1000 (1.4-6.5); NEUT% 67.3 % (42.2-75.2); PLT 251 X1000 (130-400); RBC 3.46 XMIL (4.7-6.1); RDW 15.5 % (11.5-14.5); WBC 3.48 X1000 (4.8-10.8)
[2019-08-14 08:17] LABS: AGAP 9; ALBUMIN 2.8 g/dL (3.5-5.0); BUN 11 mg/dL (8-22); CHLORIDE 104 mmol/L (98-107); COSMO 271; CREATININE 0.9 mg/dL (0.7-1.2); ESTIMATED GFR > 60; GLUCOSE 85 mg/dL (70-104); PHOSPHORUS 2.2 mg/dL (2.7-4.5); POTASSIUM 3.7 mmol/L (3.5-5.1); SODIUM 136 mmol/L (136-145); TCO2 23 mmol/L (25-35)
[2019-08-14] MEDS: CENTRUM SILVER PO SCH (09:03)
[2019-08-14] MEDS: ICAR-C PO SCH ×2 (09:03→21:01)
[2019-08-14] MEDS: NICODERM PATCH TD SCH (09:03)
[2019-08-14] MEDS ORDERED: SODIUM PHOSPHATE 35 MMOL in NS 250 ML IV ONE (09:42)
[2019-08-14] MEDS: ZITHROMAX 500 MG/NS 500 MG/250 ML IVPB IV SCH (10:45)
--- NOTE | 2019-08-14 13:22 | PROGRESS NOTE ---
DATE: 08/14/2019 SUBJECTIVE: The patient reports mild abdominal cramping, but no other issues noted. OBJECTIVE: Vital Signs: Temperature 98.6 degrees, heart rate 92, respiratory rate 18, blood pressure 137/70, O2 saturation 96% on room air. General: This is an 79-year-old, male, lying in bed in no acute distress. Cardiovascular: S1 and S2 heard. No murmurs, gallops, or rubs. Regular rate and rhythm. Respiratory: Clear bilaterally to auscultation. No work of breathing or using accessory muscles. Abdomen: Soft, a little bit distended, but nontender to palpation. Bowel sounds present. No organomegaly. Extremities: No clubbing, cyanosis, or edema. Peripheral pulses present in both legs. Neurological: The patient is awake, but sometimes confused at times regarding time and place. Moves all 4 extremities spontaneously. LABORATORY DATA: White cell count 3.48, hemoglobin 9.6, hematocrit 31.2, platelets 251,000. Normal BMP, except phosphorus 2.2. ASSESSMENT AND PLAN: 1. Gastrointestinal bleeding secondary to antral ulcer. Hemoglobin is stable so far after 2 units of blood has been transfused. For suspicion for a penetrating ulcer, CT of the abdomen with oral contrast was ordered, but it did not show that that condition was happening. In that regard, we are going to continue with current medications that include Protonix 40 mg intravenously every 12 hours that we are going to complete for 72 hours. Will continue to hold blood thinners, and will keep checking CBC daily. 2. Acute bronchopneumonia. Will continue with Rocephin and azithromycin. 3. Cholelithiasis, stable. Cholecystitis has been ruled out. 4. Dementia. The patient continues to become confused at night, so we are going to provide Haldol 2.5 mg intravenously at bedtime, and Ativan as needed. 5. Disposition. At this point, the patient is much more stable with hemoglobin that is stable. Will continue to monitor CBC daily. cc: Timo Baker MD
--- NOTE | 2019-08-14 14:32 | GASTROENTEROLOGY PROGRESS NOTE ---
DATE: 08/14/2019 SUBJECTIVE: Mr. Tuttle is an 79-year-old, male who was resting in bed. Family at the bedside. Patient c/o of mild abdominal tenderness. OBJECTIVE: Vital Signs: Temperature 98.6 degrees, pulse is 92, respirations 18, blood pressure 137/70, oxygen saturation 96% percent on room air. The patient's weight is 132 pounds. BMI is 20.1 kg/m2. General: He is alert, oriented x2, and in no acute distress. HEENT: Pale conjunctivae. No icterus. PERRL. Neck: Supple. Lungs: Clear to auscultation. Cardiovascular: Patient is tachycardic. Abdomen: Soft, tender, nondistended. Active bowel sounds heard in all 4 quadrants. Extremities: No clubbing, no cyanosis, no edema. The patient has an incision on his right leg with manuel intact. Skin is dry. Neurologic: Alert and oriented x2. Labs: WBCs are 3.48, RBCs 3.46, hemoglobin is 9.6, hematocrit is 31.2, platelet count is 251,000. Sodium 136, potassium 3.7, chloride 104, carbon dioxide 23, anion gap is 9, BUN 11, creatinine is 0.9, glucose is 85, calcium is 8.0, phosphorus is 2.2. IMPRESSION AND PLAN: 1. Gastrointestinal bleed. 2. Pneumonia. 3. Gastric ulcers. 4. Hip fracture, status post surgery. 5. Current smoker. PLAN: Mr. Tuttle is an 79-year-old, male who recently had a hip fracture and had a surgery at [facility]. GI has been following him for his GI bleed. The patient's hemoglobin today is 9.6 and hematocrit is 31.2. It has been trending upwards. An endoscopy was done yesterday. The findings were mucosa of the esophagus appeared normal, stomach showed that he had some single non-bleeding, deep, and irregular-shaped ulcers measuring 40 mm in size with two red spots that were found on the lesser curvature of the gastric antrum, submucosal. It was cauterized. Duodenum was normal. The patient is currently on a clear liquid diet. We will continue patient with PPIs IV twice a day, and monitor his hemoglobin and hematocrit with a goal of hemoglobin between 7 and 8. We recommend to continue to hold his blood thinners. A repeat CT of the abdomen with oral contrast is recommended to rule out penetrating ulcers. The patient is on Rocephin and Zithromax for his pneumonia. We will continue to monitor the patient and follow the plan of care per PCP. This plan was discussed with Dr. Edward. Please call us with any further questions or concerns. Dictated by WILEDR Pace for Marcello Edward MD cc: Marcello Edward MD I have seen and examined the patient myself and I agree with the above plan of care. Please call us with any further questions or concerns. MYLENE
[2019-08-14] MEDS: ELOCON CREAM TOP SCH ×2 (15:49→21:01)
[2019-08-14] MEDS: ATIVAN IV PRN ×2 (16:28→23:01)
[2019-08-14] MEDS: ROCEPHIN 1 GM in NS 50 ML IV SCH (20:54)
[2019-08-14] MEDS ORDERED: HALDOL IV SCH (21:00)
[2019-08-15] MEDS: ATIVAN IV PRN (02:27)
[2019-08-15] MEDS: DUONEB (A & A) INH SCH ×5 (03:38→19:47)
[2019-08-15 07:01] LABS: BASO# 0.01 X1000 (0.0-0.2); BASO% 0.3 % (0.0-0.8); EOS# 0.05 X1000 (0.0-0.7); EOS% 1.3 % (0.0-10.0); HEMATOCRIT 35.6 % (42.0-52.0); HEMOGLOBIN 11.2 g/dL (14.0-18.0); IMM GRAN# 0.02 X1000 (0.0-0.04); IMM GRAN% 0.5 % (0.0-0.5); LYMPH# 1.01 X1000 (1.2-3.4); MCH 28.4 PG (27-31); MCHC 31.5 g/dL (33-37); MCV 90.4 FL (81-99); MONO# 0.52 X1000 (0.11-0.59); MONO% 13.4 % (1.7-9.3); MPV 8.7 FL (7.4-10.4); NEUT# 2.27 X1000 (1.4-6.5); NEUT% 58.5 % (42.2-75.2); PLT 233 X1000 (130-400); RBC 3.94 XMIL (4.7-6.1); RDW 15.7 % (11.5-14.5); WBC 3.88 X1000 (4.8-10.8)
[2019-08-15 07:41] LABS: AGAP 11; BUN 7 mg/dL (8-22); CALCIUM 8.1 mg/dL (8.8-10.2); CHLORIDE 104 mmol/L (98-107); COSMO 272; CREATININE 0.8 mg/dL (0.7-1.2); ESTIMATED GFR > 60; GLUCOSE 73 mg/dL (70-104); PHOSPHORUS 2.4 mg/dL (2.7-4.5); POTASSIUM 3.8 mmol/L (3.5-5.1); SODIUM 138 mmol/L (136-145); TCO2 23 mmol/L (25-35)
[2019-08-15] MEDS: PROTONIX IV SCH ×2 (08:30→18:39)
[2019-08-15] MEDS: NICODERM PATCH TD SCH (09:08)
[2019-08-15] MEDS: HALDOL IV SCH ×2 (11:02→20:45)
[2019-08-15] MEDS: ZITHROMAX 500 MG/NS 500 MG/250 ML IVPB IV SCH (11:02)
[2019-08-15] MEDS: ELOCON CREAM TOP SCH ×2 (11:12→20:49)
[2019-08-15] MEDS: ICAR-C PO SCH ×2 (11:13→20:48)
[2019-08-15] MEDS: CENTRUM SILVER PO SCH (11:13)
--- NOTE | 2019-08-15 12:48 | PROGRESS NOTE ---
DATE: 08/15/2019 SUBJECTIVE: The patient is much more sleepy. Apparently, he has received 1 dose of Haldol last night and since then he is definitely much more sleepy. No other issues noted as per nursing staff. OBJECTIVE: Vital signs: Temperature 97.7 degrees, heart rate 73, respiratory 19, blood pressure 151/94. O2 saturation 96% on room air. General: This is an 79-year-old male, lying in bed, in no acute distress. Cardiovascular: S1, S2 heard. No murmurs, gallops, or rubs. Regular rate and rhythm. Respiratory: Clear bilaterally to auscultation. No work of breathing or using accessory muscles. Abdomen: Soft. A little bit distended but nontender to palpation. Bowel sounds present. No organomegaly. Extremities: No clubbing, cyanosis, or edema. Peripheral pulses present in both legs. Neurologic: Patient is awake but sometimes confused. Peripheral pulses present in both legs. Neurologic: The patient is sleepy this morning because of medication that he received a few hours ago. LABORATORY DATA: Hemoglobin is 11.2, hematocrit 35.6. Platelet 253,000. ASSESSMENT AND PLAN: 1. Gastrointestinal bleeding secondary to antral ulcer. Continues to improve. We have checked a CT of the abdomen with contrast to see that the stomach ulcer was not penetrating, soft tissue was negative. At this point, we will continue with Protonix 40 mg IV q.12 hours for a total of 72 hours. That is going to be done today at night. Tomorrow we will start oral Protonix. We will continue to hold blood thinners. We will continue to check CBC daily. 2. Acute viral pneumonia. We will continue with Rocephin and azithromycin. 3. Cholelithiasis stable. Cholecystitis has been ruled out. 4. Dementia. Because he received Haldol 2.5 mg IV last night at 9 p.m. he is still sleepy. I think we will reduce the dose to 1 mg at bedtime and we will go from there. 5. Disposition. We will continue to monitor this patient over the weekend, and on Sunday, we will consider sending him back to his care home. cc: Timo Baker MD
[2019-08-15] MEDS: NS 1,000 ML IV SCH (14:30)
--- NOTE | 2019-08-15 15:00 | GASTROENTEROLOGY PROGRESS NOTE ---
DATE: 08/15/2019 SUBJECTIVE: Mr. Tuttle is an 79-year-old, male resting in bed. His daughter was there at the bedside. The patient was confused. Daughter mentioned that he had received Haldol because he was trying to pull his IV. OBJECTIVE: Vital Signs: Temperature 97.9 degrees, pulse 50, respirations 19, blood pressure 105/87, oxygen saturation 100%. He is on room air. The patient's weight is 132 pounds. BMI is 20.1 kg/m2. General: He is confused and no acute distress. HEENT: Pale conjunctivae. No icterus. PERRL. Neck: Supple. Lungs: Clear to auscultation. Cardiovascular: Patient is bradycardic. Abdomen: Soft, tender, nondistended. Active bowel sounds heard in all 4 quadrants. Extremities: No clubbing, no cyanosis, no edema. Pedal pulses 2+ present bilaterally. The patient has got incision in his right leg. [place] intact and skin is dry. Neurologic: Confused LABORATORY DATA: WBCs 3.88, RBCs 3.94, hemoglobin is 11.2, hematocrit is 35.6, platelet count is 233. Sodium 138, potassium 3.8, chloride 104, carbon dioxide 23, anion gap 11. BUN 7, creatinine 0.8, glucose 73, calcium 8.1, albumin is 3.0. IMPRESSION AND PLAN: 1. Gastrointestinal bleed. 2. Pneumonia. 3. Gastric ulcers. 4. Hip fracture status post surgery. 5. Smoker. PLAN: Mr. Tuttle is an 79-year-old, male, who recently had a hip fracture and had surgery at [facility]. GI is following him for his GI bleed. The patient's hemoglobin and hematocrit today are 11.2 and 35.6. They are trending upwards. The patient had an endoscopy done on 08/13 and it showed that the mucosa of the esophagus appeared normal. Stomach had some single, nonbleeding, deep and irregular-shaped ulcers measuring 40 mm in size, and 2 red spots that were found on the laser curvature of the gastric antrum, submucosal. It was cauterized. The duodenum was normal. The patient is currently on a clear liquid diet. He is on Protonix 40 mg IV and is receiving antibiotic Rocephin and Zithromax. The patient is on iron tablet twice a day and multivitamin once a day. He is on IV fluids normal saline at 75 mL/hour. We will continue to monitor the patient and follow the plan of care per PCP. Family has denied noticing any more bleeding episodes. This plan was discussed with Dr. Delatorre. Please call us for any further questions or concerns. Dictated by WILDER Pace for Berhane Delatorre MD MTDD
[2019-08-15] MEDS: ROCEPHIN 1 GM in NS 50 ML IV SCH (20:47)
[2019-08-16] MEDS: DUONEB (A & A) INH SCH ×7 (03:52→23:14)
[2019-08-16] MEDS: PROTONIX IV SCH ×2 (06:17→23:48)
[2019-08-16] MEDS: SODIUM CHLORIDE 0.9% INJ SCH (06:17)
[2019-08-16] MEDS: NS 1,000 ML IV SCH (06:19)
[2019-08-16 07:00] LABS: BASO# 0.01 X1000 (0.0-0.2); BASO% 0.2 % (0.0-0.8); EOS# 0.04 X1000 (0.0-0.7); EOS% 0.9 % (0.0-10.0); HEMATOCRIT 32.8 % (42.0-52.0); HEMOGLOBIN 10.2 g/dL (14.0-18.0); LYMPH# 0.83 X1000 (1.2-3.4); LYMPH% 18.7 % (20.5-51.1); MCH 28.3 PG (27-31); MCHC 31.1 g/dL (33-37); MCV 90.9 FL (81-99); MONO# 0.41 X1000 (0.11-0.59); MONO% 9.2 % (1.7-9.3); NEUT# 3.16 X1000 (1.4-6.5); PLT 231 X1000 (130-400); RBC 3.61 XMIL (4.7-6.1); RDW 15.8 % (11.5-14.5); WBC 4.45 X1000 (4.8-10.8)
[2019-08-16 07:26] LABS: AGAP 9; ALBUMIN 3.1 g/dL (3.5-5.0); BUN 7 mg/dL (8-22); CALCIUM 7.6 mg/dL (8.8-10.2); CHLORIDE 105 mmol/L (98-107); COSMO 275; CREATININE 0.8 mg/dL (0.7-1.2); ESTIMATED GFR > 60; GLUCOSE 86 mg/dL (70-104); POTASSIUM 3.4 mmol/L (3.5-5.1); SODIUM 139 mmol/L (136-145); TCO2 25 mmol/L (25-35)
[2019-08-16] MEDS ORDERED: SODIUM PHOSPHATE 35 MMOL in NS 250 ML IV ONE (08:49)
[2019-08-16] MEDS: ZITHROMAX 500 MG/NS 500 MG/250 ML IVPB IV SCH (11:01)
[2019-08-16] MEDS: NICODERM PATCH TD SCH (11:02)
[2019-08-16] MEDS: ICAR-C PO SCH ×2 (11:02→23:48)
[2019-08-16] MEDS: CENTRUM SILVER PO SCH (11:02)
[2019-08-16] MEDS: ELOCON CREAM TOP SCH ×2 (11:12→23:48)
[2019-08-16] MEDS: TYLENOL PO PRN (12:51)
--- NOTE | 2019-08-16 13:46 | PROGRESS NOTE ---
DATE: 08/16/2019 SUBJECTIVE: Patient is sleepy this morning. No other issues noted as per nursing staff overnight. OBJECTIVE: Vital Signs: Temperature 98.3 degrees, heart rate 75, respiratory rate 19, blood pressure 161/76, O2 saturation 96% 2 L nasal cannula. General: This is an 79-year-old, male, lying in bed, in no acute distress. Cardiovascular: S1, S2 heard. No murmurs, gallops, or rubs. Regular rate and rhythm. Respiratory: Clear bilaterally to auscultation. No work of breathing or using accessory muscles. Abdomen: Soft, a little bit distended but apparently nontender to palpation. Bowel sounds present. No organomegaly. No signs of peritoneal irritation. Extremities: No clubbing, cyanosis, or edema. Peripheral pulses present in both legs. Neurological exam: Patient is sleepy this morning. Does not follow commands. Moves 4 extremities spontaneously. LABORATORY DATA: White cell count 4.45, hemoglobin 10.2, hematocrit 32.8, platelets 231,000 with a BMP that shows potassium 3.4. ASSESSMENT AND PLAN: 1. Gastrointestinal bleeding secondary to antral ulcer. Clinically, this patient is stable. No more signs of gastrointestinal bleeding. No melena reported. Hemoglobin continues to be stable. We will continue with Protonix 40 mg IV q.12 hours. Because this patient is sleepy, we will prefer to continue with IV right now and once he is more awake, we will switch to oral Protonix. He has been for 72 hours with this medication. We will continue to hold blood thinners. We will continue to check CBC daily. 2. Bronchopneumonia. We will continue with Rocephin and azithromycin. 3. Cholelithiasis stable. Cholecystitis has been ruled out. 4. Dementia. The patient is more sleepy because he has received Haldol last night. We have reduced the doses of that medication from 2.5 to 1 mg at bedtime. We will continue to monitor this patient closely. 5. Disposition. I think we will keep this patient over the weekend here, and on Sunday we will try to send him back to his rehab facility. cc: Timo Baekr MD
[2019-08-16] MEDS: ATIVAN IV PRN (20:14)
[2019-08-16] MEDS ORDERED: HALDOL IV ONE ×2 (23:55→23:56)
[2019-08-17] MEDS: ATIVAN IV PRN ×2 (00:25→04:11)
[2019-08-17] MEDS: DUONEB (A & A) INH SCH ×6 (04:03→22:45)
[2019-08-17] MEDS: ROCEPHIN 1 GM in NS 50 ML IV SCH (04:10)
[2019-08-17] MEDS: NS 1,000 ML IV SCH ×3 (04:11→19:52)
[2019-08-17 07:11] LABS: BASO# 0.02 X1000 (0.0-0.2); BASO% 0.5 % (0.0-0.8); EOS# 0.09 X1000 (0.0-0.7); EOS% 2.2 % (0.0-10.0); HEMATOCRIT 30.9 % (42.0-52.0); HEMOGLOBIN 9.5 g/dL (14.0-18.0); LYMPH# 0.98 X1000 (1.2-3.4); LYMPH% 23.7 % (20.5-51.1); MCHC 30.7 g/dL (33-37); MCV 91.2 FL (81-99); MONO# 0.37 X1000 (0.11-0.59); MPV 8.9 FL (7.4-10.4); NEUT# 2.67 X1000 (1.4-6.5); NEUT% 64.6 % (42.2-75.2); PLT 225 X1000 (130-400); RBC 3.39 XMIL (4.7-6.1); RDW 15.6 % (11.5-14.5); WBC 4.13 X1000 (4.8-10.8)
[2019-08-17 08:00] LABS: AGAP 9; ALBUMIN 2.8 g/dL (3.5-5.0); BUN 6 mg/dL (8-22); CALCIUM 7.5 mg/dL (8.8-10.2); CHLORIDE 106 mmol/L (98-107); COSMO 276; CREATININE 0.7 mg/dL (0.7-1.2); ESTIMATED GFR > 60; GLUCOSE 73 mg/dL (70-104); PHOSPHORUS 2.3 mg/dL (2.7-4.5); POTASSIUM 2.9 mmol/L (3.5-5.1); SODIUM 140 mmol/L (136-145); TCO2 25 mmol/L (25-35)
[2019-08-17] MEDS: ELOCON CREAM TOP SCH ×2 (08:15→20:43)
[2019-08-17] MEDS: CENTRUM SILVER PO SCH (08:15)
[2019-08-17] MEDS: ICAR-C PO SCH ×2 (08:15→20:39)
[2019-08-17] MEDS: HALDOL IV PRN (08:44)
[2019-08-17] MEDS: PROTONIX IV SCH ×2 (08:45→20:39)
[2019-08-17] MEDS ORDERED: SODIUM PHOSPHATE 35 MMOL in NS 250 ML IV ONE (09:06)
--- NOTE | 2019-08-17 09:26 | Diag Imaging Result Doc PS360 ---
EXAM: CHEST-2 VIEWS 08/17/2019 HISTORY: pna TECHNIQUE: PA and lateral chest COMMENT: Compared to 08/12/2019 the opacity which was previously demonstrated in the medial right lower lobe has diminished. The lungs are generally not as expanded as they were previously. IMPRESSION: Improved right lower lobe pneumonia. Electronically signed by Michael Hooker 08/17/2019 9:24 AM
[2019-08-17] MEDS: NICODERM PATCH TD SCH (09:57)
--- NOTE | 2019-08-17 10:45 | PROGRESS NOTE ---
DATE: 08/17/2019 SUBJECTIVE: The patient is awake but confused. He had been very confused last night, requiring Haldol and Ativan. OBJECTIVE: Vital Signs: Temperature 98.1 degrees, heart rate 79, respiratory rate 17, blood pressure 163/71, O2 saturation 95% on room air. General Examination: This is an 79-year-old, male, lying in bed, in no acute distress. Cardiovascular Examination: S1 and S2 heard. No murmurs, gallops, or rubs. Regular rate and rhythm. Respiratory Examination: Clear bilaterally to auscultation. No work of breathing or using accessory muscles. Abdomen: Soft. A little bit distended but apparently nontender to palpation. Bowel sounds present. No organomegaly. No signs of peritoneal irritation. Extremities: No clubbing, cyanosis, or edema. Peripheral pulses present in both legs. Neurological Examination: The patient is sleepy and confused. Does not follow commands. Mumbled some unintelligible words. Laboratory Data: Hemoglobin 9.5. Potassium 2.9. Phosphorus 2.3. ASSESSMENT AND PLAN: 1. Gastrointestinal bleed secondary to antral ulcer. Clinically, no more signs of bleeding. Hemoglobin has dropped a little bit. We will continue with Protonix 40 mg intravenous every 12 hours. We will continue to check CBC daily. 2. Bronchopneumonia. We will continue Rocephin and azithromycin. Patient is not requiring any oxygen supplementation. 3. Dementia. The patient continues to be agitated. We will adjust the doses of Haldol and Ativan. We will continue to monitor. 4. Disposition. I think if this patient continues to have a hemoglobin that is stable, we will try to send this patient to a rehab facility tomorrow morning. cc: Timo Baker MD
[2019-08-17] MEDS: NEUTRA-PHOS PO SCH ×2 (11:10→20:40)
[2019-08-17] MEDS: CARAFATE LIQUID PO SCH ×2 (13:59→20:39)
[2019-08-17] MEDS: TYLENOL PO PRN (17:13)
[2019-08-17] MEDS: SYNTHROID PO SCH (18:47)
[2019-08-17] MEDS: ZITHROMAX 500 MG/NS 500 MG/250 ML IVPB IV SCH (18:49)
[2019-08-17] MEDS: SODIUM CHLORIDE 0.9% INJ SCH (20:39)
[2019-08-17] MEDS: MELATONIN PO SCH (20:43)
[2019-08-18] MEDS: CARAFATE LIQUID PO SCH ×4 (01:37→20:07)
[2019-08-18] MEDS: TYLENOL PO PRN (01:37)
[2019-08-18] MEDS: DUONEB (A & A) INH SCH ×5 (03:16→19:52)
[2019-08-18] MEDS: ROCEPHIN 1 GM in NS 50 ML IV SCH (03:59)
[2019-08-18] MEDS: SYNTHROID PO SCH (06:22)
[2019-08-18 07:12] LABS: HEMATOCRIT 33.7 % (42.0-52.0); HEMOGLOBIN 10.4 g/dL (14.0-18.0); MCH 27.9 PG (27-31); MCHC 30.9 g/dL (33-37); MCV 90.3 FL (81-99); MPV 8.9 FL (7.4-10.4); RBC 3.73 XMIL (4.7-6.1); RDW 15.4 % (11.5-14.5); WBC 4.29 X1000 (4.8-10.8)
[2019-08-18] MEDS: PROTONIX IV SCH ×2 (07:58→20:07)
[2019-08-18] MEDS: SODIUM CHLORIDE 0.9% INJ SCH ×2 (07:59→20:07)
[2019-08-18] MEDS: KLOR-CON PO SCH (08:02)
[2019-08-18] MEDS: CENTRUM SILVER PO SCH (08:02)
[2019-08-18] MEDS: ICAR-C PO SCH ×2 (08:02→20:07)
[2019-08-18] MEDS: ARICEPT PO SCH (08:02)
[2019-08-18] MEDS: TENORMIN PO SCH (08:02)
[2019-08-18] MEDS: NICODERM PATCH TD SCH (08:03)
[2019-08-18] MEDS: APRESOLINE PO SCH (08:03)
[2019-08-18] MEDS: ELOCON CREAM TOP SCH (08:04)
[2019-08-18] MEDS: NEUTRA-PHOS PO SCH ×4 (08:05→16:33)
[2019-08-18 08:12] LABS: AGAP 13; ALBUMIN 3.2 g/dL (3.5-5.0); BUN 5 mg/dL (8-22); CALCIUM 7.8 mg/dL (8.8-10.2); CHLORIDE 105 mmol/L (98-107); COSMO 280; CREATININE 0.8 mg/dL (0.7-1.2); ESTIMATED GFR > 60; GLUCOSE 60 mg/dL (70-104); PHOSPHORUS 2.2 mg/dL (2.7-4.5); POTASSIUM 2.9 mmol/L (3.5-5.1); SODIUM 143 mmol/L (136-145); TCO2 25 mmol/L (25-35)
[2019-08-18] MEDS: SYMBICORT 160/4.5 MICROGM INHALER INH SCH (08:51)
[2019-08-18] MEDS ORDERED: CENTRUM SILVER PO SCH (09:00)
[2019-08-18] MEDS ORDERED: SODIUM PHOSPHATE 35 MMOL in NS 250 ML IV ONE (10:00)
[2019-08-18] MEDS ORDERED: POTASSIUM CHLORIDE 60 MEQ in NS 500 ML IV ONE (10:00)
--- NOTE | 2019-08-18 10:35 | PROGRESS NOTE ---
DATE: 08/18/2019 SUBJECTIVE: The patient is awake this morning but continues to be confused. He has been receiving Ativan and Haldol IV last night. He has been restarted on home medications for dementia yesterday. OBJECTIVE: Vital Signs: Temperature 98.1 degrees, heart rate 100, respiratory rate 20, blood pressure 143/60, O2 saturation 98% on room air. General: A 69-year-old, male, lying in bed, in no acute distress. Recently confused. Cardiovascular: S1, S2 heard. No murmurs, gallops, or rubs. Regular rate and rhythm. Respiratory: Clear bilaterally to auscultation. No work of breathing. Much better. Abdomen: Soft, nontender to palpation. Bowel sounds present. No organomegaly. Extremities: No clubbing, cyanosis or edema. 2+ pedal pulses present bilaterally. Neurologic: Patient alert, oriented x3. Moves 4 extremities. LABORATORY: Reviewed. ASSESSMENT AND PLAN: 1. Gastrointestinal bleeding secondary to antral ulcer. Clinically, this patient has no more signs of bleeding. Hemoglobin continues to be stable. At this point, we will continue with Protonix 40 mg IV q.12 hours. We will continue to check CBC daily. 2. Bronchopneumonia. We will continue with Rocephin and azithromycin day #6 for both medications. We will continue with same management. 3. Dementia. Patient continues to be agitated. Patient receiving Haldol and Ativan. We will continue with the same management. 4. Disposition. This patient is much better. Patient continues to be stable. Unfortunately, he is a little bit agitated so he is requiring Ativan and Haldol to keep him calmed down. All his dementia medication have been restarted and we will see that helps. We will continue to monitor this patient closely. cc: Timo Baker MD
[2019-08-18] MEDS: ZITHROMAX 500 MG/NS 500 MG/250 ML IVPB IV SCH (11:39)
[2019-08-18] MEDS: NS 1,000 ML IV SCH (11:39)
[2019-08-18] MEDS: NAMENDA XR PO SCH (13:48)
[2019-08-18] MEDS: ATIVAN IV PRN (20:06)
[2019-08-18] MEDS: MELATONIN PO SCH (20:06)
[2019-08-18] MEDS: HALDOL IV PRN (23:26)
[2019-08-19] MEDS: ATIVAN IV PRN (00:23)
[2019-08-19] MEDS: NS 1,000 ML IV SCH (02:03)
[2019-08-19] MEDS: NEUTRA-PHOS PO SCH ×2 (02:03→09:57)
[2019-08-19] MEDS: ELOCON CREAM TOP SCH ×2 (02:04→11:06)
[2019-08-19] MEDS: CARAFATE LIQUID PO SCH ×2 (02:04→09:58)
[2019-08-19] MEDS: DUONEB (A & A) INH SCH ×3 (04:32→11:19)
[2019-08-19] MEDS: ROCEPHIN 1 GM in NS 50 ML IV SCH (05:36)
[2019-08-19 07:23] LABS: HEMATOCRIT 33.1 % (42.0-52.0); HEMOGLOBIN 10.3 g/dL (14.0-18.0); MCH 28.2 PG (27-31); MCHC 31.1 g/dL (33-37); MCV 90.7 FL (81-99); MPV 9.3 FL (7.4-10.4); RBC 3.65 XMIL (4.7-6.1); RDW 15.2 % (11.5-14.5); WBC 5.2 X1000 (4.8-10.8)
[2019-08-19 07:49] LABS: AGAP 12; ALBUMIN 2.9 g/dL (3.5-5.0); BUN 6 mg/dL (8-22); CALCIUM 7.4 mg/dL (8.8-10.2); CHLORIDE 106 mmol/L (98-107); COSMO 275; CREATININE 0.8 mg/dL (0.7-1.2); ESTIMATED GFR > 60; GLUCOSE 66 mg/dL (70-104); PHOSPHORUS 2.4 mg/dL (2.7-4.5); POTASSIUM 3.8 mmol/L (3.5-5.1); SODIUM 140 mmol/L (136-145); TCO2 22 mmol/L (25-35)
[2019-08-19] MEDS: SYMBICORT 160/4.5 MICROGM INHALER INH SCH (08:18)
[2019-08-19] MEDS: KLOR-CON PO SCH (09:56)
[2019-08-19] MEDS: APRESOLINE PO SCH (09:56)
[2019-08-19] MEDS: SYNTHROID PO SCH (09:57)
[2019-08-19] MEDS: ICAR-C PO SCH (09:57)
[2019-08-19] MEDS: ARICEPT PO SCH (09:57)
[2019-08-19] MEDS: TENORMIN PO SCH (09:57)
[2019-08-19] MEDS: NICODERM PATCH TD SCH (09:57)
[2019-08-19] MEDS: CENTRUM SILVER PO SCH (09:57)
[2019-08-19] MEDS: NAMENDA XR PO SCH (09:57)
[2019-08-19] MEDS: PROTONIX IV SCH (09:58)
[2019-08-19] MEDS: SODIUM CHLORIDE 0.9% INJ SCH (09:58)
--- NOTE | 2019-08-19 10:18 | DISCHARGE SUMMARY ---
ADMISSION DATE: 08/12/2019 DISCHARGE DATE: 08/19/2019 DIAGNOSES: 1. Gastrointestinal bleed secondary to antral ulcer. 2. Bronchopneumonia. 3. Dementia. DIAGNOSTICS: 1. Abdominal x-ray revealed significant calcifications projecting over the gallbladder fossa, likely represents gallbladder packed with gallstones. 2. Chest x-ray, 08/12/2019: COPD with pulmonary scarring. 3. CT of the abdomen and pelvis, 08/12/2019: Bronchopneumonia, fluid in the colon which may be indicative of mild enterocolitis, atherosclerotic changes with abdominal aortic aneurysm, cholelithiasis. 4. Abdominal ultrasound shows cholelithiasis without evidence of acute cholecystitis. 5. On 08/13/2019, CT of the abdomen with oral contrast: Wall thickening of the gastric pylorus. No obvious ulceration or perforation. 6. On 08/17/2019, chest x-ray: Improved right lower lobe pneumonia. PROCEDURES: On 08/13/2019, EGD with control of bleeding, a single nonbleeding deep and irregular- shaped ulcer measuring 40 mm in size with 2 red spots were found in the lesser curvature of the gastric antrum. Submucosal injection of 3 mL of epinephrine 1:10,000 was injected around the site with good treatment effect. Cautery was applied to the site with good treatment effect. Duodenum was normal. The mucosa of the esophagus appeared normal. The Z-line was noted at 45 cm from the incisors. The Z-line appeared normal. MICROBIOLOGY: Blood cultures x2 revealed no growth after 5 days. HOSPITAL COURSE: Mr. Tuttle presented to the emergency room from his extended care facility with complaints of crampy abdominal pain, multiple melanotic stools, and a syncopal episode. He did have a pressure in the 70s. He was found to have bronchopneumonia, for which he was treated with Rocephin and azithromycin, and will be transitioned to Omnicef on discharge. He underwent EGD as stated above, with results as stated above. His initial hemoglobin and hematocrit were 7.1 and 24 respectively. He received 2 units of packed cells, and today his hemoglobin and hematocrit are 10.3 and 33.1. He does have a history of dementia. He did require Ativan and Haldol. Of note, we have restarted his home medications for this. PHYSICAL EXAMINATION: Discharge Vital Signs: Blood pressure is 160/70, with heart rate of 90, respirations 20, temperature is 97.4 degrees, with O2 saturation of 95% to 97%. General: This is an 79-year-old gentleman who is lying in the bed in no distress. Cardiovascular: Regular rate and rhythm. S1 and S2 appreciated. No murmurs, rubs, or gallops. No lower extremity edema, with peripheral pulses palpable x4 extremities. Pulmonary: Breath sounds are clear with no increased work of breathing noted. Chest rises and falls symmetric with respiration. Chest wall is nontender to palpation. Gastrointestinal: Abdomen is soft, nontender, nondistended, with bowel sounds in all 4 quadrants. Neurologic: He is alert and cooperative. DISCHARGE MEDICATIONS: 1. Carafate 1 gram p.o. every 6 hours. 2. Seroquel 50 mg p.o. at bedtime. 3. Prevagen 1 every a.m. 4. Protonix 40 mg p.o. b.i.d. 5. NicoDerm patch as directed. 6. Centrum Silver 1 p.o. daily. 7. Milk of magnesia 1 dose p.r.n. constipation. 8. Icar C one p.o. b.i.d. 9. [place] 5/325 one every 6 hours p.r.n. pain. 10. Omnicef 300 mg p.o. b.i.d. x7 days. 11. Symbicort 160/4.5 one inhalation b.i.d. 12. Xanax 0.5 mg p.o. every 8 hours p.r.n. anxiety. 13. Albuterol nebulizer 1 daily. 14. Tylenol 1000 mg at bedtime. 15. Potassium 20 mEq p.o. daily. 16. Namenda/benazepril 28/10 one p.o. daily. 17. Melatonin 1 mg p.o. at bedtime. 18. Levothyroxine 125 mcg p.o. daily. 19. Hydralazine 50 mg p.o. daily. DISPOSITION: He is being discharged in transfer to [facility] in stable condition. TIME SPENT: This is a greater than 30-minute discharge. Dictated by WILDER Villeda for Timo Baker MD cc: WILDER Villeda MD
[2019-08-19] MEDS: ZITHROMAX 500 MG/NS 500 MG/250 ML IVPB IV SCH (11:06)
[2019-08-19 11:35] VITALS: BP 155/76
[2019-08-19] MEDS ORDERED: SEROQUEL PO SCH (21:00)
== END 2019-08-19 14:17 | DRG 377 ==
LOC: ED 04:32 → 4N 08:30
PROVIDERS: ATTEND Internal Medicine
PROC: EN.HEAT (2019-08-13 09:45)